=== PATIENT | male | born 1955 | race Caucasian/White ===

== ENCOUNTER 2017-12-03 13:59 | Emergency (ER) | payer OTHER ==
[~2017-12-03] VITALS: Ht 180.3 cm; Wt 77.1 kg
[~2017-12-03 13:59] MED LIST: AMLODIPINE BESYL5 MG PO; LISINOPRIL-HCT1 EAC1 PO
[2017-12-03] MEDS ORDERED: NORCO 10-325 T1 EACH PO (14:56)
[2017-12-03] MEDS ORDERED: AUGMENTIN 875-1 EACH PO (14:56)
== END 2017-12-03 15:23 | disposition home or self-care (01) ==
LOC: ED 13:59
PROC: 0HQGXZZ Repair Left Hand Skin, External Approach (ICD-10-PCS; principal; 2017-12-03)
DX: S61.211A Laceration without foreign body of left index finger without damage to nail, initial encounter (principal); S61.213A Laceration without foreign body of left middle finger without damage to nail, initial encounter; W31.2XXA Contact with powered woodworking and forming machines, initial encounter; I10 Essential (primary) hypertension; F17.200 Nicotine dependence, unspecified, uncomplicated; Z79.899 Other long term (current) drug therapy
CPT/HCPCS: 12002; 73130; 99283

== ENCOUNTER 2018-04-27 07:58 | Emergency (ER) | payer OTHER ==
[~2018-04-27] VITALS: Ht 180.3 cm; Wt 77.1 kg
[~2018-04-27 07:58] MED LIST changes: +AUGMENTIN 875-1 EACH PO; +NORCO 10-325 T1 EACH PO
[2018-04-27] MEDS ORDERED: ZESTRIL5 MG PO (08:13)
== END 2018-04-27 08:33 | disposition home or self-care (01) ==
LOC: ED 07:58
DX: K40.90 Unilateral inguinal hernia, without obstruction or gangrene, not specified as recurrent (principal); I10 Essential (primary) hypertension; F17.200 Nicotine dependence, unspecified, uncomplicated; Z79.899 Other long term (current) drug therapy
CPT/HCPCS: 99283

== ENCOUNTER 2018-10-14 08:50 | Day surgery (SDC) | payer OTHER ==
[~2018-10-14] VITALS: Ht 180.3 cm; Wt 72.6 kg
[~2018-10-14 08:50] MED LIST changes: +ZESTRIL5 MG PO
--- NOTE | 2018-10-14 13:03 | NUR ---
10/14/18 1303 Galen Vazquez PATIENT ARRIVES SLEEPY, BUT HOLDING OWN AIRWAY AND ARROUSABLE TO TOUCH.
--- NOTE | 2018-10-14 13:37 | NUR ---
PT ARRIVES TO DS RM 5 FROM PACU WITH EYES CLSOED, EVEN AND UNLABORED RESP. PT AROUSED TO VERBAL COMMAND EASILY AND DENIES PAIN OR NAUSEA. PT FALLS BACK TO SLEEP WITH NO VERBAL STIMULATION, CONT PULSE OXIMETER LEFT IN PLACE. SATS 96% ON RA WHILE SLIGHTLY SNORING. SCD'S IN PLACE, CALL LIGHT WITHIN REACH. PT PROVIDED ICED WATER.
--- NOTE | 2018-10-14 14:40 | NUR ---
PT IS EASILY AROUSABLE. HE DENIES THE NEED TO URINATE, REPORTING THAT HE DID IT EARLIER. CALL LIGHT WITHIN REACH. NO ADDITIONAL NEEDS AT THIS TIME. WILL CONTINUE TO MONITOR.
--- NOTE | 2018-10-14 15:39 | NUR ---
PETER 1520: PT WOULD LIKE TO GET UP AND USE THE RESTROOM. HE IS ABLE TO VOID 300ML'S. HE IS ABLE TO TOLERATE WATER, JELLO, AND PUDDING. HIS MOM IS AT THE BEDSIDE. PT HAS MET ALL DC CRITERIA AT THIS TIME. HE WOULD LIKE TO GO HOME. HE IS EDUCATED ON HOW BEST TO DRESS HIMSELF AND TO OPEN HIS CURTAIN WHEN READY. HE IS GIVEN VEBAL DC INSTRUCTIONS WITH HIS MOM PRESENT. THEY BOTH VERBALIZE UNDERSTANDING. PT IS TAKEN TO VEHICLE VIA . HE IS ABLE TO TRANSFER HIMSELF FROM WC TO VEHICLE.
--- NOTE | 2018-10-15 07:48 | OR ---
[facility] [address] [place], [place] [address] Signed DATE OF OPERATION: 10/14/2018 SURGEON: Cyrus Magaña MD PREOPERATIVE DIAGNOSIS: Reducible right moderate to large inguinal hernia. POSTOPERATIVE DIAGNOSIS: Reducible right moderate to large inguinal hernia. PROCEDURE: Right Diandra onlay mesh inguinal herniorrhaphy. ESTIMATED BLOOD LOSS: None. 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 He remains in excellent physical condition. He still continues to work in [employer]. His is now . Consequently, he is the sole income earner. In the last 3 months or so, he has noticed pain and swelling in the right groin. It is extending clip down next to the right testicle. He said it has become quite debilitating. He cannot stand for any length of time and has to lay down. He said he generally can push it back inside. He said even his bowel movement and his urination is starting to bother him. He has been having diarrhea as well. He wakes overnight and he said he is in pain and is not able to sleep from the hernia. At the recommendation of a friend, he bought a truss. He has had no relief with his truss. He went to the emergency room for evaluation. They diagnosed him with a right inguinal hernia and asked him to follow up with his primary care provider. He was then asked to see me as a local general surgeon. On exam, Baron does have a right inguinal hernia extending down to the top of the testicle. It took me a few minutes, but eventually I got to go back inside. I gave him a [employer] brochure on hernias. We looked at that together in detail. He understands the nature of an inguinal hernia along with the difference between a primary suture repair and a mesh repair. We also discussed the expected intraop and postop course. He is aware of the risks including, but not limited to bleeding, infection, scarring, change in contour of the skin, damage to the nerves, ischemic orchitis, recurrent hernias, and chronic pain. He expressed understanding and wished to proceed. PROCEDURE NOTE: Baron was taken into the operating room and placed in the supine position under general Electronically Signed By: CYRUS MAGAÑA MD 10/15/18 0748 PATIENT NAME: NOAH RANGEL OPERATIVE REPORT DATE OF : 59 REPORT #: [id number] PHYSICIAN: CYRSU MAGAÑA MD PCP: TAVARES BROOKS MD REPORT IS CONFIDENTIAL AND NOT TO BE RELEASED WITHOUT AUTHORIZATION [facility] [address] [place], [place] [address] Signed LMA anesthesia. He was given preoperative antibiotics along with subcutaneous heparin. Everyone had agreed it was the right inguinal hernia. He was given preoperative antibiotics along with subcutaneous heparin. SCDs were utilized. He was prepped and draped in usual sterile fashion. We then utilized our standard oblique incision in the right groin and carried it down through the tissue bluntly and with the cautery. The external oblique fascia was opened along its length and developed medially and laterally. The iliohypogastric and ilioinguinal nerves were visualized and protected throughout the case. He did have some chronic scarring to that ilioinguinal nerve as it was exiting the external ring. We then elevated the cord structures at the level of pubic tubercle with the help of the Henderson drain. The direct space was fine. We opened the cord structures at the level of the deep ring on the anteromedial side. He had a dopeokkj-pu-yagjt hernia sac extending all the way down next to the testicle. It was slowly, but surely from the surrounding cord structures with blunt dissection. It was clear he has had it for some time. The hernia sac was opened and we were able to easily pass our index finger through the deep ring into the abdominal cavity. The hernia sac was pursestring with 2-0 PDS suture. The distal portion of the hernia sac was excised with the help of cautery and passed off the field. A piece of flat Prolene mesh was then cut to fit his groin and a slit was made in the mesh to accommodate the cord structures at the level of the deep ring. The mesh was held in place medially and laterally with the help of running #1 Prolene suture. There was no undue tension of the mesh at the level of the deep ring. Local anesthetic was then copiously injected into the entire operative field. The wound was irrigated and suctioned out until clear. The external oblique fascia was closed over the repair with the help of running 2-0 PDS suture. Ivana's fascia was reapproximated with a running 3-0 Monocryl suture. The dermis was reapproximated with interrupted 3-0 Monocryl sutures. These skin edges were reapproximated with running 6-0 fast absorbing plain gut suture. Dry gauze and tape were then applied. Baron was awakened from his anesthesia, extubated in the OR, and taken to recovery room in stable condition. Cyrus Magaña MD ALB/MODL /[id number] cc: Cyrus Magaña MD Electronically Signed By: CYRUS MAGAÑA MD 10/15/18 0748 PATIENT NAME: NOAH RANGEL OPERATIVE REPORT DATE OF : 59 REPORT #: [id number] PHYSICIAN: CYRUS MAGAÑA MD PCP: TAVARES BROOKS MD REPORT IS CONFIDENTIAL AND NOT TO BE RELEASED WITHOUT AUTHORIZATION [address] [address] Signed MD Tavares Stanley MD Aclan Dogan, MD Copies: CYRUS MAGAÑA MD, BRADLEY MD HARRISON, RUSSELL BARR MD DOGAN, ACLAN MD ~ Electronically Signed By: CYRUS MAGAÑA MD 10/15/18 0748 PATIENT NAME: NOAH RNAGEL OPERATIVE REPORT DATE OF : 59 REPORT #: [id number] PHYSICIAN: CYRUS MAGAÑA MD PCP: TAVARES BROOKS MD REPORT IS CONFIDENTIAL AND NOT TO BE RELEASED WITHOUT AUTHORIZATION
== END 2018-10-14 15:32 | disposition home or self-care (01) ==
LOC: DS 08:50
PROVIDERS: Colon & Rectal Surgery
PROC: 0YU50JZ Supplement Right Inguinal Region with Synthetic Substitute, Open Approach (ICD-10-PCS; principal; 2018-10-14 09:15)
DX: K40.90 Unilateral inguinal hernia, without obstruction or gangrene, not specified as recurrent (principal); I10 Essential (primary) hypertension; K21.9 Gastro-esophageal reflux disease without esophagitis; F17.210 Nicotine dependence, cigarettes, uncomplicated; F12.90 Cannabis use, unspecified, uncomplicated; Z79.899 Other long term (current) drug therapy
CPT/HCPCS: 00830; C1781; J0690; J1100; J1644; J1885; J2250; J2405; J2704; J2765; J3010; J7120

== ENCOUNTER 2022-05-14 12:57 | Emergency (ER) | payer OTHER ==
[~2022-05-14] VITALS: Ht 180.3 cm; Wt 74.8 kg
[~2022-05-14 12:57] MED LIST changes: +TRIBENZOR 20-51 EACH PO
[2022-05-14] MEDS ORDERED: OLMSRTN-AMLDPN1 EACH PO (13:20)
[2022-05-14] MEDS ORDERED: LISINOPRIL40 MG PO (13:20)
[2022-05-14] MEDS ORDERED: ANTIVERT25 M1 PO (14:45)
--- NOTE | 2022-05-14 22:10 | EKG ---
[facility] [address] [facility] [place] [address] Signed Sinus rhythm with premature supraventricular complexes Otherwise normal ECG No previous ECGs available Confirmed by MEHDI CAMERON MD ([id number]) on 05/14/2022 10:10:17 PM Electronically Signed By: MEHDI CAMERON MD 05/14/222209 PATIENT NAME: NOAH RANGEL Electrocardiogram DATE OF : 59 PHYSICIAN: MEHDI CAMERON MD REPORT #: [id number] REPORT IS CONFIDENTIAL AND NOT TO BE RELEASED WITHOUT AUTHORIZATION
== END 2022-05-14 15:16 | disposition home or self-care (01) ==
LOC: ED 12:57
DX: R42 Dizziness and giddiness (principal); I10 Essential (primary) hypertension; F17.200 Nicotine dependence, unspecified, uncomplicated; Z79.899 Other long term (current) drug therapy
CPT/HCPCS: 36415; 70450; 70496; 70498; 71045; 80053; 83735; 84484; 85025; 85610; 85730; 93005; 93010; 99284-25; Q9967

== ENCOUNTER 2022-12-15 17:58 | Emergency (ER) | payer MEDICARE, OTHER ==
[~2022-12-15] VITALS: Ht 180.3 cm; Wt 75.7 kg
--- OUTSIDE RECORDS SUMMARY | ~2022-12-15 | XMS | Continuity of Care Document ---
Demographics + + + | Address | [address] | | | [place] [address] | + + + | Preferred Language | Unknown | + + + | Marital Status | | + + + | Cheondoism Affiliation | Unknown | + + + | Race | White | + + + | Ethnic Group | Not or | + + + Author + + + | Author | [facility] | + + + | Organization | [facility] | + + + | Address | [address] | | | [place] [address] | + + + | Phone | | + + + Care Team Providers + + + + | Care Silk Screen Cutter Name | Role | Phone | + + + + Unavailable | Unavailable | + + + + Unavailable | Unavailable | + + + + Unavailable | Unavailable | + + + + Allergies No information. Encounters No information. Functional Status No information. Immunizations No information. Medications + + + + | date | description | facility | + + + + | 2022-04-25 00:00 | LISINOPRIL | [facility] | + + + + | 2022-04-25 00:00 | AMLODIPINE BESYLATE | [facility] | + + + + | 2022-05-15 00:00 | AMLODIPINE BESYLATE | [facility] | + + + + | 2022-05-15 00:00 | LISINOPRIL | [facility] | + + + + | 2022-04-25 00:00 | | [facility] | | | LISINOPRIL/HYDROCHLOROTHIAZ | | | | LOKI | | + + + + | 2022-05-15 00:00 | | [facility] | | | LISINOPRIL/HYDROCHLOROTHIAZ | | | | LOKI | | + + + + | 2022-05-14 00:00 | Meclizine HCl | [facility] | + + + + | 2017-12-03 00:00 | AMOXICILLIN/POTASSIUM CLAV | [facility] | | | | | + + + + | 2017-12-03 00:00 | AMOXICILLIN/POTASSIUM CLAV | [facility] | | | | | + + + + | 2017-12-03 00:00 | HYDROCODONE/APAP | [facility] | | | (10-325MG) | | + + + + | 2017-12-03 00:00 | HYDROCODONE/APAP | [facility] | | | (10-325MG) | | + + + + | 2022-04-25 00:00 | OLMESARTAN | [facility] | | | MED/AMLODIPINE/HCTZ | | + + + + | 2022-05-15 00:00 | OLMESARTAN | [facility] | | | MED/AMLODIPINE/HCTZ | | + + + + Problems + + + + | date | description | facility | + + + + | 2014-12-24 00:00 | Abrasions of multiple | [facility] | | | sites | | + + + + | 2014-12-24 00:00 | Abrasions of multiple | [facility] | | | sites | | + + + + | 2015-09-20 00:00 | Sprain of foot | [facility] | + + + + | 2015-09-20 00:00 | Sprain of foot | [facility] | + + + + | 2016-04-01 00:00 | Encounter for medical | [facility] | | | screening examination | | + + + + | 2016-04-01 00:00 | Encounter for medical | [facility] | | | screening examination | | + + + + | 2017-12-03 00:00 | Laceration of finger of [facility] | | | left hand with complication | | | | | | + + + + | 2017-12-03 00:00 | Laceration of finger of [facility] | | | left hand with complication | | | | | | + + + + | 2017-12-03 00:00 | Fracture of phalanx of | [facility] | | | finger of left hand | | + + + + | 2017-12-03 00:00 | Fracture of phalanx of [facility] | | | finger of left hand | | + + + + | 2022-05-14 00:00 | Dizziness | [facility] | + + + + Procedures + + + + | date | description | facility | + + + + | 2022-04-25 00:00 | EXCISION OF RIGHT LARGE | [facility] | | | INTESTINE, ENDO, DIAGN | | + + + + | 2022-04-25 00:00 | Colonoscopy with biopsy of | [facility] | | | colon | | + + + + | 2022-04-25 00:00 | Colonoscopy with biopsy of | [facility] | | | colon | | + + + + | 2022-04-25 00:00 | COLONOSCOPY W/LESION | [facility] | | | REMOVAL | | + + + + Results/Labs +--------+--------+ +---------+--------+---------+ | test | date | facility | value | unit | notes | +--------+--------+ +---------+--------+---------+ + + | Result panel 1 | + + + + + +--------+ + + | | 2022-05-14 | [facility] | 10.6 | (missing) | (missing) | | (unavailable | [facility] | | | | + + + +--------+ + + + + | Result panel 2 | + + + + + +--------+ + + | | 2022-05-14 | [facility] | 72.9 | (missing) | (missing) | | (unavailable | [facility] | | | | + + + +--------+ + + + + | Result panel 3 | + + + + + +--------+ + + | | 2022-05-14 | [facility] | 16.1 | (missing) | (missing) | | (unavailable | [facility] | | | | + + + +--------+ + + + + | Result panel 4 | + + + + + +-------+ + + | | 2022-05-14 | [facility] | 8.9 | (missing) | (missing) | | (unavailable | [facility] | | | | + + + +-------+ + + + + | Result panel 5 | + + + + + +-------+ + + | | 2022-05-14 | [facility] | 1.9 | (missing) | (missing) | | (unavailable | [facility] | | | | + + + +-------+ + + + + | Result panel 6 | + + + + + +-------+ + + | | 2022-05-14 | [facility] | 0.2 | (missing) | (missing) | | (unavailable | [facility] | | | | + + + +-------+ + + + + | Result panel 7 | + + + + + +--------+ + + | | 2022-05-14 | [facility] | 12.1 | (missing) | (missing) | | (unavailable | [facility] | | | | + + + +--------+ + + + + | Result panel 8 | + + + + + +--------+ + + | | 2022-05-14 | [facility] | 0.93 | (missing) | (missing) | | (unavailable | [facility] | | | | + + + +--------+ + + + + | Result panel 9 | + + + + + +--------+ + + | | 2022-05-14 | [facility] | 25.7 | (missing) | (missing) | | (unavailable | [facility] | | | | + + + +--------+ + + + + | Result panel 10 | + + + + + +------+---------+ + | | 2022-05-14 | [facility] | 72 | mg/dL | (missing) | | (unavailable | [facility] | | | | + + + +------+---------+ + + + | Result panel 11 | + + + + + +--------+ + + | | 2022-05-14 | [facility] | 4.85 | (missing) | (missing) | | (unavailable | [facility] | | | + + + +--------+ + + + + | Result panel 12 | + + + + + +------+---------+ + | | 2022-05-14 | [facility] | 27 | mg/dL | (missing) | | (unavailable | [facility] | | | | + + + +------+---------+ + + + | Result panel 13 | + + + + + +--------+---------+ + | | 2022-05-14 | [facility] | 1.46 | mg/dL | (missing) | | (unavailable | [facility] | | | | + + + +--------+---------+ + + + | Result panel 14 | + + + + + +------+ + + | | 2022-05-14 | [facility] | 53 | (missing) | (missing) | | (unavailable | [facility] | | | | + + + +------+ + + + + | Result panel 15 | + + + + + +---------+ + + | | 2022-05-14 | [facility] | 18.49 | (missing) | (missing) | | (unavailable | [facility] | | | | + + + +---------+ + + + + | Result panel 16 | + + + + + +-------+ + + | | 2022-05-14 | [facility] | 137 | (missing) | (missing) | | (unavailable | [facility]:08 [facility] | | | | + + + +-------+ + + + + | Result panel 17 | + + + + + +-------+ + + | | 2022-05-14 | [facility] | 3.9 | (missing) | (missing) | | (unavailable | [facility] | | | | + + + +-------+ + + + + | Result panel 18 | + + + + + +-------+ + + | | 2022-05-14 | [facility] | 102 | (missing) | (missing) | | (unavailable | [facility] | | | | + + + +-------+ + + + + | Result panel 19 | + + + + + +------+ + + | | 2022-05-14 | [facility] | 30 | (missing) | (missing) | | (unavailable | [facility]08 [facility] | | | | + + + +------+ + + + + | Result panel 20 | + + + + + +-------+ + + | | 2022-05-14 | [facility] | 8.9 | (missing) | (missing) | | (unavailable | [facility] | | | | + + + +-------+ + + + + | Result panel 21 | + + + + + +-------+---------+ + | | 2022-05-14 | [facility] | 9.0 | mg/dL | (missing) | | (unavailable | [facility] | | | + + + +-------+---------+ + + + | Result panel 22 | + + + + + +--------+ + + | | 2022-05-14 | [facility] | 15.1 | (missing) | (missing) | | (unavailable | [facility] | | | + + + +--------+ + + + + | Result panel 23 | + + + + + +-------+---------+ + | | 2022-05-14 | [facility] | 1.9 | mg/dL | (missing) | | (unavailable | [facility]08 [facility] | | | | + + + +-------+---------+ + + + | Result panel 24 | + + + + + +-------+ + + | | 2022-05-14 | [facility] | 7.5 | (missing) | (missing) | | (unavailable | [facility] | | | + + + +-------+ + + + + | Result panel 25 | + + + + + +-------+ + + | | 2022-05-14 | [facility] | 3.5 | (missing) | (missing) | | (unavailable | [facility] | | | + + + +-------+ + + + + | Result panel 26 | + + + + + +-------+ + + | | 2022-05-14 | [facility] | 4.0 | (missing) | (missing) | | (unavailable | [facility] | | | + + + +-------+ + + + + | Result panel 27 | + + + + + +--------+ + + | | 2022-05-14 | [facility] | 0.88 | (missing) | (missing) | | (unavailable | [facility] | | | + + + +--------+ + + + + | Result panel 28 | + + + + + +-------+ + + | | 2022-05-14 | [facility] | 0.3 | (missing) | (missing) | | (unavailable | [facility] | | | + + + +-------+ + + + + | Result panel 29 | + + + + + +------+ + + | | 2022-05-14 | [facility] | 27 | (missing) | (missing) | | (unavailable | [facility] | | | + + + +------+ + + + + | Result panel 30 | + + + + + +------+ + + | | 2022-05-14 | [facility] | 31 | (missing) | (missing) | | (unavailable | [facility] | | | + + + +------+ + + + + | Result panel 31 | + + + + + +------+ + + | | 2022-05-14 | [facility] | 97 | (missing) | (missing) | | (unavailable | [facility] | | | + + + +------+ + + + + | Result panel 32 | + + + + + +--------+ + + | | 2022-05-14 | [facility] | 11.9 | (missing) | (missing) | | (unavailable | [facility] | | | + + + +--------+ + + + + | Result panel 33 | + + + + + +--------+ + + | | 2022-05-14 | [facility] | 45.6 | (missing) | (missing) | | (unavailable | [facility] | | | + + + +--------+ + + + + | Result panel 34 | + + + + + +--------+ + + | | 2022-05-14 | [facility] | 94.1 | (missing) | (missing) | | (unavailable | [facility] | | | + + + +--------+ + + + + | Result panel 35 | + + + + + +--------+ + + | | 2022-05-14 | [facility] | 31.1 | (missing) | (missing) | | (unavailable | [facility] | | | + + + +--------+ + + + + | Result panel 36 | + + + + + +--------+ + + | | 2022-05-14 | [facility] | 33.0 | (missing) | (missing) | | (unavailable | [facility] | | | + + + +--------+ + + + + | Result panel 37 | + + + + + +--------+ + + | | 2022-05-14 | [facility] | 13.9 | (missing) | (missing) | | (unavailable | [facility] | | | + + + +--------+ + + + + | Result panel 38 | + + + + + +-------+ + + | | 2022-05-14 | [facility] | 290 | (missing) | (missing) | | (unavailable | [facility]:08 [facility] | | | + + + +-------+ + + + + | Result panel 39 | + + + + + +------+ + + | | 2022-05-14 | [facility] | 79 | (missing) | (missing) | | (unavailable | 14[facility]34:08 [facility] | | | | + + + +------+ + + + + | Result panel 40 | + + + + + + + + + | | 2022-05-14 | [facility] | NEGATIVE | (missing) | (missing) | | (unavailable | [facility]37:08 [facility] | | | + + + + + + + + + | Result panel 41 | + + + + + + + + + | | 2022-05-14 | [facility] | POSITIVE | (missing) | (missing) | | (unavailable | [facility]37:08 [facility] | | | + + + + + + + + + | Result panel 42 | + + + + + + + + + | | 2022-05-14 | [facility] | NEGATIVE | (missing) | (missing) | | (unavailable | [facility]37[facility]08 [facility] | | | + + + + + + + + + | Result panel 43 | + + + + + + + + + | | 2022-05-14 | [facility] | NEGATIVE | (missing) | (missing) | | (unavailable | [facility]37[facility]08 [facility] | | | + + + + + + + + + | Result panel 44 | + + + + + + + + + | | 2022-05-14 | [facility] | NEGATIVE | (missing) | (missing) | | (unavailable | [facility]37[facility]08 [facility] | | | + + + + + + + + + | Result panel 45 | + + + + + + + + + | | 2022-05-14 | [facility] | NEGATIVE | (missing) | (missing) | | (unavailable | [facility]37[facility]08 [facility] | | | + + + + + + + + + | Result panel 46 | + + + + + + + + + | | 2022-05-14 | [facility] | NEGATIVE | (missing) | (missing) | | (unavailable | [facility]37[facility] | | | + + + + + + + + + | Result panel 47 | + + + + + + + + + | | 2022-05-14 | [facility] | NEGATIVE | (missing) | (missing) | | (unavailable | [facility]37:08 [facility] | | | + + + + + + + + + | Result panel 48 | + + + + + + + + + | | 2022-05-14 | [facility] | NEGATIVE | (missing) | (missing) | | (unavailable | [facility]37:08 [facility] | | | + + + + + + + + + | Result panel 49 | + + + + + + + + + | | 2022-05-14 | [facility] | NEGATIVE | (missing) | (missing) | | (unavailable | [facility]37:08 [facility] | | | | + + + + + + + + + | Result panel 50 | + + + + + + + + + | | 2022-05-14 | [facility] | NEGATIVE | (missing) | (missing) | | (unavailable | [facility]37:08 [facility] | | | + + + + + + + + + | Result panel 51 | + + + + + + + + + | | 2022-05-14 | [facility] | NEGATIVE | (missing) | (missing) | | (unavailable | [facility]37[facility] | | | + + + + + + + + + | Result panel 52 | + + + + + + + + + | | 2022-05-14 | [facility] | NEGATIVE | (missing) | (missing) | | (unavailable | [facility]37[facility] | | | + + + + + + + Social History No information. Vital Signs + + + +---------+ | date | measurement | value | units | + + + +---------+ | 2022-04-25 00:00 | BMI | 23.1 | kg/m2 | + + + +---------+ | 2022-04-25 00:00 | BP_diastolic | 76 | mmHg | + + + +---------+ | 2022-04-25 00:00 | BP_diastolic | 82 | mmHg | + + + +---------+ | 2022-04-25 00:00 | BP_systolic | 107 | mmHg | + + + +---------+ | 2022-04-25 00:00 | BP_systolic | 127 | mmHg | + + + +---------+ | 2022-04-25 00:00 | heart_rate | 64 | /min | + + + +---------+ | 2022-04-25 00:00 | heart_rate | 67 | /min | + + + +---------+ | 2022-04-25 00:00 | height_metric | 180.34 | cm | + + + +---------+ | 2022-04-25 00:00 | height_standard | 71 | in | + + + +---------+ | 2022-04-25 00:00 | o2_saturation | 100 | % | + + + +---------+ | 2022-04-25 00:00 | o2_saturation | 98 | % | + + + +---------+ | 2022-04-25 00:00 | respiration_rate | 16 | /min | + + + +---------+ | 2022-04-25 00:00 | temperature_metric | 36.11 | C | | | | | | + + + +---------+ | 2022-04-25 00:00 | temperature_metric | 36.72 | C | | | | | | + + + +---------+ | 2022-04-25 00:00 | | 97 | F | | | temperature_standar | | | | | d | | | + + + +---------+ | 2022-04-25 00:00 | | 98.1 | F | | | temperature_standar | | | | | d | | | + + + +---------+ | 2022-04-25 00:00 | weight_metric | 75 | kg | + + + +---------+ | 2022-04-25 00:00 | weight_standard | 165.35 | lb | + + + +---------+ | 2022-05-14 00:00 | BMI | 23.0 | kg/m2 | + + + +---------+ | 2022-05-14 00:00 | BP_diastolic | 79 | mmHg | + + + +---------+ | 2022-05-14 00:00 | BP_systolic | 153 | mmHg | + + + +---------+ | 2022-05-14 00:00 | heart_rate | 65 | /min | + + + +---------+ | 2022-05-14 00:00 | height_metric | 180.34 | cm | + + + +---------+ | 2022-05-14 00:00 | height_standard | 71 | in | + + + +---------+ | 2022-05-14 00:00 | o2_saturation | 99 | % | + + + +---------+ | 2022-05-14 00:00 | respiration_rate | 15 | /min | + + + +---------+ | 2022-05-14 00:00 | temperature_metric | 37.06 | C | | | | | | + + + +---------+ | 2022-05-14 00:00 | | 98.7 | F | | | temperature_standar | | | | | d | | | + + + +---------+ | 2022-05-14 00:00 | weight_metric | 74.84 | kg | + + + +---------+ | 2022-05-14 00:00 | weight_standard | 164.99 | lb | + + + +---------+ | 2022-05-14 00:00 | weight_standard | 165 | lb | + + + +---------+"
--- OUTSIDE RECORDS SUMMARY | ~2022-12-15 | XMS | Continuity of Care Document ---
Demographics + + + | Address | [address] | | | [place] [address] | + + + | Preferred Language | Unknown | + + + | Marital Status | | + + + | Alevism Affiliation | Unknown | + + + | Race | White | + + + | Ethnic Group | Not or | + + + Author + + + | Author | [facility] | + + + | Organization | [facility] | + + + | Address | [address] | | | [place] [address] | + + + | Phone | | + + + Care Team Providers + + + + | Care Stockbroker Name | Role | Phone | + [...] + | 2022-04-25 00:00 | LISINOPRIL | [facility] | + + + + | 2022-04-25 00:00 | AMLODIPINE BESYLATE | [facility] | + + + + | 2022-05-15 00:00 | AMLODIPINE BESYLATE | [facility] | + + + + | 2022-05-15 00:00 | LISINOPRIL | [facility] | + + + + | 2022-04-25 00:00 | | [facility] | | | LISINOPRIL/HYDROCHLOROTHIAZ | | | | LOKI | | + + + + | 2022-05-15 00:00 | | [facility] | | | LISINOPRIL/HYDROCHLOROTHIAZ | | | | LOKI | | + + + + | 2022-05-14 00:00 | Meclizine HCl | [facility] | + + + + | 2017-12-03 00:00 | AMOXICILLIN/POTASSIUM CLAV | [facility] | | | | | + + + + | 2017-12-03 00:00 | AMOXICILLIN/POTASSIUM CLAV | [facility] | | | | | + + + + | 2017-12-03 00:00 | HYDROCODONE/APAP | [facility] | | | (10-325MG) | | + + + + | 2017-12-03 00:00 | HYDROCODONE/APAP | [facility] | | | (10-325MG) | | + + + + | 2022-04-25 00:00 | OLMESARTAN | [facility] | | | MED/AMLODIPINE/HCTZ | | + + + + | 2022-05-15 00:00 | OLMESARTAN | [facility] | | | MED/AMLODIPINE/HCTZ | | + + + + Problems + + + + | date | description | facility | + + + + | 2014-12-24 00:00 | Abrasions of multiple | [facility] | | | sites | | + + + + | 2014-12-24 00:00 | Abrasions of multiple | [facility] | | | sites | | + + + + | 2015-09-20 00:00 | Sprain of foot | [facility] | + + + + | 2015-09-20 00:00 | Sprain of foot | [facility] | + + + + | 2016-04-01 00:00 | Encounter for medical | [facility] | | | screening examination | | + + + + | 2016-04-01 00:00 | Encounter for medical | [facility] | | | screening examination | | + + + + | 2017-12-03 00:00 | Laceration of finger of [facility] | | | left hand with complication | | | | | | + + + + | 2017-12-03 00:00 | Laceration of finger of [facility] | | | left hand with complication | | | | | | + + + + | 2017-12-03 00:00 | Fracture of phalanx of | [facility] | | | finger of left hand | | + + + + | 2017-12-03 00:00 | Fracture of phalanx of [facility] | | | finger of left hand | | + + + + | 2022-05-14 00:00 | Dizziness | [facility] | + + + + Procedures + + + + | date | description | facility | + + + + | 2022-04-25 00:00 | EXCISION OF RIGHT LARGE | [facility] | | | INTESTINE, ENDO, DIAGN | | + + + + | 2022-04-25 00:00 | Colonoscopy with biopsy of | [facility] | | | colon | | + + + + | 2022-04-25 00:00 | Colonoscopy with biopsy of | [facility] | | | colon | | + + + + | 2022-04-25 00:00 | COLONOSCOPY W/LESION | [facility] | | | REMOVAL | | [...]
[~2022-12-15 17:58] MED LIST changes: +ANTIVERT25 M1 PO; +LISINOPRIL40 MG PO; +OLMSRTN-AMLDPN1 EACH PO
[2022-12-15 18:19] LABS: HEMATOCRIT 42.7 % (35.0-50.0)
[2022-12-15 18:21] LABS: HEMOGLOBIN 14.5 g/dL (12.0-18.0); MCH 31.2 (27-36); MCHC 33.8 g/dl (30-36); MCV 92.2 fl (81-99); PLATELET COUNT 297 K/uL (140-440); RBC 4.64 M/ul (4.3-5.7); RDW 13.4 (10.5-15.0)
[2022-12-15 18:32] LABS: BANDS, MANUAL DIFF 1; LYMPHOCYTES, MANUAL DIFF 14; MONOCYTES, MANUAL DIFF 2; NEUTROPHILS, MANUAL DIFF 83
[2022-12-15 18:34] LABS: ALBUMIN 4.2 g/dL (3.4-5.0); ALBUMIN/GLOBULIN RATIO 1.08 (1.1-2.4); ALCOHOL, MEDICAL <3 ng/dL (<3); ALKALINE PHOSPHATASE 94 U/L (46-116); ALT (SGPT) 55 U/L (14-59); AST (SGOT) 35 U/L (15-37); BILIRUBIN, TOTAL 0.4 ng/dL (0.2-1.0); CALCIUM 9.5 mg/dL (8.5-10.1); CARBON DIOXIDE 23 mmol/L (21-32); CHLORIDE 101 mmol/L (98-107); CREATININE, SERUM 2.75 mg/dL (0.70-1.30); GLOMERULAR FILTRATION RATE,EST 25 mL/min (>60); PROTEIN, TOTAL 8.1 g/dL (6.4-8.2); UREA NITROGEN 52 mg/dL (7-18)
[2022-12-15 19:15] LABS: ABO O; ANTIBODY SCREEN NEGATIVE; RH POSITIVE
[2022-12-15 21:56] VITALS: BP 154/83
--- NOTE | 2022-12-16 05:59 | EKG ---
[facility] [address] [place] [address] Signed Sinus rhythm with premature atrial complexes Nonspecific ST and T wave abnormality Abnormal ECG When compared with ECG of 14-MAY-2022 14:01, Nonspecific T wave abnormality now evident in Inferior leads T wave inversion now evident in Lateral leads Confirmed by KIYA HONEYCUTT MD ([id number]) on 12/16/2022 5:59:04 AM Electronically Signed By: KIYA HONEYCUTT 12/16/22 [id number] PATIENT NAME: NOAH RANGEL Electrocardiogram DATE OF : 59 PHYSICIAN: KIYA HONEYCUTT REPORT #: [id number] REPORT IS CONFIDENTIAL AND NOT TO BE RELEASED WITHOUT AUTHORIZATION
== END 2022-12-15 21:57 | disposition short-term general hospital (02) ==
LOC: ED 17:58
PROVIDERS: Emergency Medicine
DX: R55 Syncope and collapse (principal); S42.011A Anterior displaced fracture of sternal end of right clavicle, initial encounter for closed fracture; S22.41XA Multiple fractures of ribs, right side, initial encounter for closed fracture; S01.80XA Unspecified open wound of other part of head, initial encounter; W19.XXXA Unspecified fall, initial encounter; I10 Essential (primary) hypertension; F17.200 Nicotine dependence, unspecified, uncomplicated; Z79.899 Other long term (current) drug therapy
CPT/HCPCS: 36415; 70450; 71260; 72125; 80053; 85025; 86850; 86900; 86901; 93005; 93010; G0480; J1170; J2405; J7030; U0002